=== PATIENT | female | born 2000 | race Two or more races ===

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

== ENCOUNTER 2018-07-13 18:28 | Emergency (ER) | payer MEDICAID ==
[2018-07-13 18:51] VITALS: BP 132/84; PULSE 60; RESP 16; TEMP 97.7; O2SAT 100
--- NOTE | 2018-07-13 18:58 | C.PDOC ---
History Of Present Illness 18 year old female presents to the emergency department with complaints of 2 days of nausea, vomiting, and dizziness. Patient states that she "almost passed out" 2 days ago. Patient reports feeling better yesterday, and states that she is asymptomatic today. Patient states that her job requires a note to return. Time Seen by Provider: 07/13/18 18:51 Chief Complaint (Nursing): Syncope History Per: Patient History/Exam Limitations: no limitations Onset/Duration Of Symptoms: Days (2) Current Symptoms Are (Timing): Gone Fall Associated With With Symptoms: No Past Medical History Reviewed: Historical Data, Nursing Documentation, Vital Signs Vital Signs: Last Vital Signs Temp 97.7 F 07/13/18 18:33 Pulse 60 07/13/18 18:33 Resp 16 07/13/18 18:33 BP 132/84 07/13/18 18:33 Pulse Ox 100 07/13/18 18:33 - Medical History PMH: No Chronic Diseases Surgical History: No Surg Hx Family History: States: No Known Family Hx - Social History Hx Tobacco Use: No Hx Alcohol Use: No Hx Substance Use: No - Immunization History Hx Tetanus Toxoid Vaccination: No Hx Influenza Vaccination: No Hx Pneumococcal Vaccination: No Review Of Systems Constitutional: Negative for: Fever, Chills Cardiovascular: Negative for: Chest Pain, Palpitations Respiratory: Negative for: Shortness of Breath Gastrointestinal: Negative for: Nausea, Vomiting, Abdominal Pain, Diarrhea Neurological: Negative for: Weakness, Numbness, Headache, Dizziness Physical Exam - Physical Exam Appears: Well, Non-toxic, No Acute Distress Skin: Warm, Dry Head: Normacephalic Eye(s): bilateral: Normal Inspection Oral Mucosa: Moist Neck: Supple Cardiovascular: Rhythm Regular Respiratory: Normal Breath Sounds, No Rales, No Rhonchi, No Wheezing Gastrointestinal/Abdominal: Normal Exam, Bowel Sounds, Soft, No Tenderness Extremity: Normal ROM Neurological/Psych: Oriented x3 ED Course And Treatment O2 Sat by Pulse Oximetry: 100 (RA) Pulse Ox Interpretation: Normal Progress Note: Patient given work note and discharged. She was instructed to follow up with PMD/clinic in 1-2 days, and understands she should return to ED if symptoms worsen. Disposition Counseled Patient/Family Regarding: Diagnosis, Need For Followup - Disposition Referrals: Bhavin Goins MD [Medical Doctor] - Disposition: HOME/ ROUTINE Disposition Time: 19:00 Condition: STABLE Instructions: Viral Syndrome (DC) Forms: [employer] ([place]amanian), Work Excuse Print Language: KINYARWANDA - Clinical Impression Clinical Impression: Viral syndrome - Scribe Statement The provider has reviewed the documentation as recorded by the Scribe (Christoph Alejandro) Provider Attestation: All medical record entries made by the Scribe were at my direction and personally dictated by me. I have reviewed the chart and agree that the record accurately reflects my personal performance of the history, physical exam, medical decision making, and the department course for this patient. I have also personally directed, reviewed, and agree with the discharge instructions and disposition.
== END 2018-07-13 19:07 | disposition home or self-care (01) ==
LOC: C.ER 18:28
DX: B34.9 Viral infection, unspecified (principal)